=== PATIENT | female | born 1995 | race Caucasian/White ===

== ENCOUNTER 2016-07-25 18:38 | Emergency (ER) | payer MEDICAID, OTHER ==
[~2016-07-25] VITALS: Ht 180.3 cm; Wt 68.0 kg
[2016-07-25] MEDS ORDERED: DIPH25CA83 PO (18:57)
[2016-07-25] MEDS ORDERED: EPIPEN (18:57)
[2016-07-25] MEDS ORDERED: ALBUTEROL (0.083%) 2.5MG/3ML NEB HHN STA (19:11)
[2016-07-25] MEDS ORDERED: PREDNISONE 20MG TABLET PO STA (19:11)
[2016-07-25] MEDS ORDERED: IPRATROPIUM BROMIDE (0.02%) 0.5MG/2.5ML NEB HHN STA (19:11)
[2016-07-25] MEDS ORDERED: DIPHENHYDRAMINE 25MG CAPSULE PO ONE (19:15)
[2016-07-25 21:11] VITALS: BP 114/71
== END 2016-07-25 21:11 | disposition home or self-care (01) ==
LOC: ER 18:38
DX: T78.1XXA Other adverse food reactions, not elsewhere classified, initial encounter (principal); J98.01 Acute bronchospasm; Z88.5 Allergy status to narcotic agent; Z91.018 Allergy to other foods; Z79.899 Other long term (current) drug therapy; X58.XXXA Exposure to other specified factors, initial encounter
CPT/HCPCS: 99283; J7512; J7611; Q0163